=== PATIENT | female | born 1950 | race Caucasian/White ===

== ENCOUNTER → 2021-01-21 | Outpatient (CLI) | payer MEDICARE, OTHER ==
[~2021-01-21] MED LIST: AMBIEN10 MG PO; GABAPENTIN300 MG PO; LOSARTAN POTASS25 MG PO; METOPROLOL TART50 MG PO; NORCO 10-325 T1 EACH PO; SIMVASTATIN20 MG PO; VENLAFAXINE HCL75 MG PO
== END ==
LOC: RAD 15:30
PROVIDERS: ATTEND Internal Medicine
DX: R07.9 Chest pain, unspecified (principal); M25.512 Pain in left shoulder
CPT/HCPCS: 71046

== ENCOUNTER → 2022-02-02 | Outpatient (CLI) | payer MEDICARE, OTHER ==
[~2022-02-02] MED LIST changes: +MICARDIS80 MG PO
[2022-02-02 13:52] LABS: BASOPHILS # (AUTO) 0.1 (0.0-0.1); BASOPHILS % 0.9 % (0.0-1.0); EOSINOPHILS # (AUTO) 0.1 (0.0-0.4); EOSINOPHILS % 1.8 % (0.0-6.0); HEMATOCRIT 43.4 % (34.2-44.1); HEMOGLOBIN 14.6 g/dL (12.0-16.0); LYMPHOCYTES # (AUTO) 1.3 (1.0-3.2); MEAN CORPUSCULAR HEMOGLOBIN 31.4 pg (28-32); MEAN CORPUSCULAR HGB CONC 33.6 g/dL (31-35); MEAN CORPUSCULAR VOLUME 93.3 fL (81-99); MONOCYTES # (AUTO) 0.7 (0.2-0.8); MONOCYTES % 9.6 % (4.4-11.3); NEUTROPHILS # (AUTO) 5.1 (2.1-6.9); NEUTROPHILS % 69.2 % (38.7-80.0); PLATELET COUNT 245 x10e3/uL (140-360); RED BLOOD COUNT 4.65 x10e6/uL (3.6-5.1); RED CELL DISTRIBUTION WIDTH 12.4 % (11.7-14.4)
== END | disposition home or self-care (01) ==
LOC: RAD 07:30 → EDSTATUS 02-04 09:30
PROVIDERS: ATTEND Internal Medicine Gastroenterology
DX: R63.4 Abnormal weight loss (principal); Z86.010 Personal history of colon polyps; R63.0 Anorexia; Z53.9 Procedure and treatment not carried out, unspecified reason
CPT/HCPCS: 36415; 85025; 93005

== ENCOUNTER → 2025-03-07 | Outpatient (REF) | payer MEDICARE, OTHER ==
[2025-03-07 12:50] LABS: BASOPHILS % 1.2 % (0.0-1.0); EOSINOPHILS % 2.4 % (0.0-6.0); LYMPHOCYTES % 15.8 % (18.0-39.1); MONOCYTES % 8.2 % (4.4-11.3); NEUTROPHILS % 69.9 % (38.7-80.0); RED CELL DISTRIBUTION WIDTH 16.0 % (11.7-14.4)
[2025-03-07 12:59] LABS: INR 1.11
[2025-03-07 13:02] LABS: EST GLOMERULAR FILTRATION RATE 33.0 ML/MIN (>=60)
[2025-03-07 17:37] LABS: BODY FLUID APPEARANCE CLEAR; BODY FLUID COLOR YELLOW; BODY FLUID TYPE PLEURAL; WBC,BODY FLUID 600 cells/uL
[2025-03-07 18:44] LABS: LYMPHOCYTES,BODY FLUID 89 %; MONO/MACROPHG,BODY FLUID 2 %; NEUTROPHILS,BODY FLUID 0 %
[2025-03-07 18:45] LABS: OTHER CELLS,BODY FLUID 9 %; TOTAL CELLS COUNTED (DIFF) 100
[2025-03-08 18:01] LABS: TOTAL PROTEIN,BODY FLUID 4.3 g/dL
== END ==
LOC: US 12:20
PROVIDERS: ATTEND Internal Medicine Critical Care Medicine
DX: J90 Pleural effusion, not elsewhere classified (principal)
CPT/HCPCS: 32555; 36415; 71045; 80053; 83615; 84157; 84478; 85025; 85610; 85730; 88112; 88305; 89051; C1729